=== PATIENT | male | born 1965 | race Caucasian/White ===

== ENCOUNTER 2017-11-14 15:36 | Inpatient (IN) | payer MEDICAID ==
[~2017-11-14] VITALS: Ht 172.7 cm; Wt 78.1 kg
[2017-11-14 17:16] LABS: PLATELET COUNT 142 x10^3mcL (130-400); RED CELL DISTRIBUTION WIDTH 14.2 % (11.5-14.5)
[2017-11-14 17:26] LABS: CALCIUM 9.9 mg/dL (8.5-10.1); CHLORIDE SERUM 93 mmol/L (98-107); CREATININE SERUM 1.5 mg/dL (0.7-1.3); GFR1 52 mL/min; GLUCOSE SERUM 189 mg/dL (74-106); POTASSIUM SERUM 3.6 mmol/L (3.5-5.1); SODIUM SERUM 137 mmol/L (136-145)
[2017-11-14 17:31] LABS: ALBUMIN 4.4 g/dL (3.4-5.0); ALKALINE PHOSPHATASE 147 U/L (46-116); ALT/SGPT 254 U/L (16-63); AST/SGOT 289 U/L (15-37); BASOPHIL % 2.2 % (0-2); BILIRUBIN TOTAL 2.76 mg/dL (0.20-1.00); TOTAL PROTEIN, SERUM 8.4 g/dL (6.4-8.2)
[2017-11-14 17:51] LABS: UA SPECIFIC GRAVITY 1.025 (1.005-1.035); microscopic required? YES; urine erythrocyte 3+ (NEGATIVE)
[2017-11-14 18:00] LABS: AMPHETAMINE QUAL UR POSITIVE (See below)
[2017-11-14 21:30] LABS: MAGNESIUM 1.9 mg/dL (1.8-2.4); PHOSPHOROUS 1.3 mg/dL (2.5-4.9)
[2017-11-14 21:40] LABS: T3 TOTAL 0.8 ng/mL
[2017-11-14 21:49] LABS: FREE T4 1.1 ng/dL (0.76-1.46); FREE THYROXINE INDEX 3.5 ug/dL (1.4-4.5); T4(THYROXINE) 10.1 ug/dL (4.7-13.3)
[2017-11-14 21:50] VITALS: BP 122/78
[2017-11-15 05:34] VITALS: BP 104/69
[2017-11-15 06:44] LABS: BASOPHIL % 0.1 % (0-2); CALCIUM 8.2 mg/dL (8.5-10.1); CARBON DIOXIDE 25.8 mmol/L (21-32); CHLORIDE SERUM 100 mmol/L (98-107); CHOLESTEROL 140 mg/dL (<200); CREATININE SERUM 0.9 mg/dL (0.7-1.3); GFR1 > 60 mL/min; GLUCOSE SERUM 107 mg/dL (74-106); PHOSPHOROUS 1.7 mg/dL (2.5-4.9); RED CELL DISTRIBUTION WIDTH 13.9 % (11.5-14.5); SODIUM SERUM 138 mmol/L (136-145); TRIGLYCERIDES 39 mg/dL (<150)
[2017-11-15 07:02] LABS: CHOLESTEROL/HDL RATIO 2.2; HDL CHOLESTEROL 64 mg/dL (40-60); POTASSIUM SERUM 2.9 mmol/L (3.5-5.1)
[2017-11-15 07:10] LABS: PLATELET COUNT 103 x10^3mcL (130-400)
[2017-11-15 09:53] VITALS: BP 102/68
[2017-11-15 12:22] VITALS: BP 100/69
[2017-11-15 17:10] VITALS: BP 90/65
[2017-11-15 20:02] VITALS: BP 112/80
[2017-11-16] VITALS (12 sets, daily range): BP systolic 85–110; BP diastolic 54–89; Ht 172.7 cm; Wt 78.1 kg
[2017-11-16 04:04] LABS: BASOPHIL % 0.7 % (0-2); RED CELL DISTRIBUTION WIDTH 14.3 % (11.5-14.5)
[2017-11-16 04:05] LABS: PLATELET COUNT 92 x10^3mcL (130-400)
[2017-11-16 04:13] LABS: CALCIUM 8.2 mg/dL (8.5-10.1); CARBON DIOXIDE 27.3 mmol/L (21-32); CHLORIDE SERUM 99 mmol/L (98-107); CREATININE SERUM 0.8 mg/dL (0.7-1.3); GFR1 > 60 mL/min; GLUCOSE SERUM 97 mg/dL (74-106); MAGNESIUM 1.5 mg/dL (1.8-2.4); PHOSPHOROUS 3.4 mg/dL (2.5-4.9); SODIUM SERUM 134 mmol/L (136-145)
[2017-11-16 04:15] LABS: POTASSIUM SERUM 2.8 mmol/L (3.5-5.1)
[2017-11-16 17:32] LABS: CALCIUM 8.2 mg/dL (8.5-10.1); CARBON DIOXIDE 27.5 mmol/L (21-32); CHLORIDE SERUM 97 mmol/L (98-107); CREATININE SERUM 0.9 mg/dL (0.7-1.3); GFR1 > 60 mL/min; GLUCOSE SERUM 112 mg/dL (74-106); SODIUM SERUM 137 mmol/L (136-145)
[2017-11-16 17:34] LABS: POTASSIUM SERUM 2.8 mmol/L (3.5-5.1)
[2017-11-17] VITALS (7 sets, daily range): BP systolic 91–104; BP diastolic 54–66
[2017-11-17 06:49] LABS: CALCIUM 8.4 mg/dL (8.5-10.1); CARBON DIOXIDE 27.3 mmol/L (21-32); CHLORIDE SERUM 98 mmol/L (98-107); CREATININE SERUM 0.9 mg/dL (0.7-1.3); GFR1 > 60 mL/min; GLUCOSE SERUM 102 mg/dL (74-106); MAGNESIUM 1.6 mg/dL (1.8-2.4); PHOSPHOROUS 4.1 mg/dL (2.5-4.9); POTASSIUM SERUM 3.3 mmol/L (3.5-5.1); SODIUM SERUM 136 mmol/L (136-145)
[2017-11-17 06:59] LABS: BASOPHIL % 0.3 % (0-2); RED BLOOD CELLS 3.26 M/mm3 (4.52-5.90)
[2017-11-17 07:19] LABS: PLATELET COUNT 113 x10^3mcL (130-400)
[2017-11-17 07:39] LABS: IRON 36 ug/dL (65-170)
[2017-11-17 07:44] LABS: TOTAL IRON BINDING CAPACITY 190 ug/dL (250-450)
[2017-11-18 05:48] VITALS: BP 93/59
[2017-11-18 06:44] LABS: BASOPHIL % 0.3 % (0-2); RED CELL DISTRIBUTION WIDTH 14.1 % (11.5-14.5)
[2017-11-18 06:56] LABS: MAGNESIUM 1.5 mg/dL (1.8-2.4); PHOSPHOROUS 4.1 mg/dL (2.5-4.9)
[2017-11-18 07:05] LABS: CALCIUM 8.9 mg/dL (8.5-10.1); CARBON DIOXIDE 32.6 mmol/L (21-32); CHLORIDE SERUM 99 mmol/L (98-107); GFR1 > 60 mL/min; GLUCOSE SERUM 108 mg/dL (74-106); POTASSIUM SERUM 3.2 mmol/L (3.5-5.1); SODIUM SERUM 137 mmol/L (136-145)
[2017-11-18 07:10] LABS: PLATELET COUNT 121 x10^3mcL (130-400)
[2017-11-18 09:44] VITALS: BP 97/62
[2017-11-18 13:40] VITALS: BP 94/68
[2017-11-18 16:31] VITALS: BP 90/62
[2017-11-18 19:49] VITALS: BP 93/63
[2017-11-19 06:05] LABS: BASOPHIL % 0.3 % (0-2); PLATELET COUNT 142 x10^3mcL (130-400); RED CELL DISTRIBUTION WIDTH 14.3 % (11.5-14.5)
[2017-11-19 06:12] VITALS: BP 113/73
[2017-11-19 06:27] LABS: CALCIUM 9.4 mg/dL (8.5-10.1); CARBON DIOXIDE 31.8 mmol/L (21-32); CHLORIDE SERUM 101 mmol/L (98-107); CREATININE SERUM 0.9 mg/dL (0.7-1.3); GFR1 > 60 mL/min; GLUCOSE SERUM 111 mg/dL (74-106); MAGNESIUM 1.6 mg/dL (1.8-2.4); PHOSPHOROUS 4.3 mg/dL (2.5-4.9); SODIUM SERUM 139 mmol/L (136-145)
[2017-11-19 08:30] VITALS: BP 105/59
[2017-11-19 13:32] VITALS: BP 102/67
[2017-11-19 16:59] VITALS: BP 104/75
[2017-11-19 21:07] VITALS: BP 103/68
[2017-11-20 05:39] VITALS: BP 92/55
[2017-11-20 09:15] VITALS: BP 85/45
[2017-11-20 14:23] VITALS: BP 91/59
[2017-11-20] MEDS ORDERED: ZES5 PO (16:11)
[2017-11-20] MEDS ORDERED: LIB25 PO (16:11)
[2017-11-20] MEDS ORDERED: ECO81 PO (16:11)
[2017-11-20] MEDS ORDERED: ALD25 PO (16:14)
[2017-11-20] MEDS ORDERED: ATORVASTATIN CA40 M1 PO (16:14)
[2017-11-20] MEDS ORDERED: CARVEDILOL3.125 M1 PO (16:15)
[2017-11-20 17:29] VITALS: BP 91/59
[2017-11-20 17:34] VITALS: BP 110/68
== END 2017-11-20 18:00 | disposition home or self-care (01) | DRG 192 ==
LOC: ED 15:36 → DU 20:40
PROVIDERS: Emergency Medicine; Family Medicine; Internal Medicine Interventional Cardiology
PROC: B2101ZZ Fluoroscopy of Single Coronary Artery using Low Osmolar Contrast (ICD-10-PCS; 2017-11-16)
PROC: B2151ZZ Fluoroscopy of Left Heart using Low Osmolar Contrast (ICD-10-PCS; 2017-11-16)
PROC: B3101ZZ Fluoroscopy of Thoracic Aorta using Low Osmolar Contrast (ICD-10-PCS; 2017-11-16)
PROC: 4A0335C Measurement of Arterial Flow, Coronary, Percutaneous Approach (ICD-10-PCS; 2017-11-16)
PROC: 4A023N7 Measurement of Cardiac Sampling and Pressure, Left Heart, Percutaneous Approach (ICD-10-PCS; principal; 2017-11-16 12:30)
DX: I11.0 Hypertensive heart disease with heart failure (principal); I21.A1 Myocardial infarction type 2; N17.0 Acute kidney failure with tubular necrosis; G92 Toxic encephalopathy; F10.231 Alcohol dependence with withdrawal delirium; I50.43 Acute on chronic combined systolic (congestive) and diastolic (congestive) heart failure; I42.7 Cardiomyopathy due to drug and external agent; M62.82 Rhabdomyolysis; E83.42 Hypomagnesemia; K70.9 Alcoholic liver disease, unspecified; E86.0 Dehydration; T43.625A Adverse effect of amphetamines, initial encounter; I25.10 Atherosclerotic heart disease of native coronary artery without angina pectoris; I16.0 Hypertensive urgency; R31.9 Hematuria, unspecified; E87.6 Hypokalemia; R74.0 Nonspecific elevation of levels of transaminase and lactic acid dehydrogenase [LDH]; F17.210 Nicotine dependence, cigarettes, uncomplicated; F15.90 Other stimulant use, unspecified, uncomplicated; F12.90 Cannabis use, unspecified, uncomplicated; Z68.28 Body mass index [BMI] 28.0-28.9, adult; Y90.0 Blood alcohol level of less than 20 mg/100 ml; Y92.89 Other specified places as the place of occurrence of the external cause
CPT/HCPCS: CLHCL; 76937; 83880; 84439; C1760; C1769; C1887; C1894; G0480; J1644; J1940; J2001; J2060; J2250; J3010; J3475; J3480; J3490; J7030; J7040; Q0092; Q9967